=== PATIENT | female | born 1965 | race Caucasian/White ===

== ENCOUNTER → 2016-05-25 | Outpatient (CLI) | payer OTHER ==
[~2016-05-25] MED LIST: ARIP15TA2 PO; ARIP2TAB PO; ARIP5TAB6 PO; ASPI-496 PO; BIOTIN PO; BUSP15TA PO; BUTA1CAP60 PO; CHOL10003 PO; CITA20TA9 PO; CITA40TA5 PO; FISH OIL PO; L THYROXINE PO; LAMO100T5 PO; LAMO200T PO; LAMO25TB2 PO; LEVO100T5 PO; LITH600C PO; MAGNESIUM PO; MULT-516 PO; PANT40TA3 PO; TRAZ150T68 PO; VITAMIN E PO
== END | disposition home or self-care (01) ==
LOC: CARD 15:11
PROVIDERS: ATTEND Specialist
DX: R06.00 Dyspnea, unspecified (principal)
CPT/HCPCS: 94060; 94726; 94729

== ENCOUNTER 2016-06-14 20:56 | Emergency (ER) | payer OTHER ==
[~2016-06-14] VITALS: Ht 170.2 cm; Wt 52.0 kg
[2016-06-14] MEDS ORDERED: ALBUTEROL/IPRATROPIUM 2.5MG/0.5MG, 3 ML NPPB ONE (21:30)
[2016-06-14] MEDS ORDERED: ALBUTEROL/IPRATROPIUM 2.5MG/0.5MG, 3 ML ONE (21:45)
[2016-06-14 21:56] LABS: HEMOGLOBIN 12.5 g/dL (11.7-16.4)
[2016-06-14 22:09] LABS: ASPARTATE AMINO TRANSFERASE 16 U/L (15-37); BLOOD UREA NITROGEN 10 mg/dL (7-18)
[2016-06-14 22:14] LABS: IS PT STATUS REG ER OR PRE ER? YES
[2016-06-14 22:49] VITALS: BP 121/72
== END 2016-06-14 23:15 ==
LOC: ED 23:00
DX: R06.02 Shortness of breath (principal); R07.89 Other chest pain; R05 Cough; Z90.49 Acquired absence of other specified parts of digestive tract; Z90.710 Acquired absence of both cervix and uterus; Z87.891 Personal history of nicotine dependence
CPT/HCPCS: 36415; 71020; 80053; 83880; 84484; 85025; 93005; 99285

== ENCOUNTER → 2016-06-15 | Outpatient (CLI) | payer OTHER | END | disposition home or self-care (01) | LOC: CVU 09:51 | PROVIDERS: ATTEND Emergency Medicine | DX: I08.3 Combined rheumatic disorders of mitral, aortic and tricuspid valves (principal) | CPT/HCPCS: 93306 ==

== ENCOUNTER → 2016-06-27 | Outpatient (CLI) | payer OTHER ==
[~2016-06-27] MED LIST changes: +OMNIPAQUE 350 MG/ML, 100ML BOTTLE ONE
== END | disposition home or self-care (01) ==
LOC: CFH 13:53
PROVIDERS: ATTEND Internal Medicine Gastroenterology
DX: R59.1 Generalized enlarged lymph nodes (principal); Z90.49 Acquired absence of other specified parts of digestive tract
CPT/HCPCS: 74177; Q9967

== ENCOUNTER 2016-10-03 14:12 | Emergency (ER) | payer OTHER ==
[~2016-10-03] VITALS: Ht 170.2 cm; Wt 57.9 kg
[~2016-10-03 14:12] MED LIST changes: -OMNIPAQUE 350 MG/ML, 100ML BOTTLE ONE
[2016-10-03] MEDS ORDERED: ONDANSETRON ODT 4 MG ONE (14:24)
[2016-10-03] MEDS ORDERED: ONDANSETRON ODT 4 MG PO ONE (14:30)
[2016-10-03] MEDS ORDERED: SODIUM CHLORIDE 0.9% 1,000ML IVBOLUS ONE (16:00)
[2016-10-03] MEDS ORDERED: FAMOTIDINE 20 MG/2 ML IVP ONE (16:00)
[2016-10-03] MEDS ORDERED: SODIUM CHLORIDE FLUSH 10ML SYR IVF ONE (16:00)
[2016-10-03] MEDS ORDERED: FAMOTIDINE 20 MG/2 ML ONE (16:21)
[2016-10-03] MEDS ORDERED: ONDANSETRON 2MG/ML, 2ML ONE ×2 (16:21→16:25)
[2016-10-03 16:29] LABS: ASPARTATE AMINO TRANSFERASE 21 U/L (15-37); BLOOD UREA NITROGEN 14 mg/dL (7-18)
[2016-10-03] MEDS ORDERED: ONDANSETRON 2MG/ML, 2ML IVPush ONE (16:30)
[2016-10-03] MEDS ORDERED: LAMO100T PO (16:31)
[2016-10-03] MEDS ORDERED: SULF1TAB24 PO (16:32)
[2016-10-03 17:41] VITALS: BP 114/64
== END 2016-10-03 17:44 | disposition home or self-care (01) ==
LOC: ED 15:26
DX: K29.01 Acute gastritis with bleeding (principal); R04.2 Hemoptysis; J44.9 Chronic obstructive pulmonary disease, unspecified; Z90.710 Acquired absence of both cervix and uterus; Z90.49 Acquired absence of other specified parts of digestive tract; Z79.82 Long term (current) use of aspirin; Z86.73 Personal history of transient ischemic attack (TIA), and cerebral infarction without residual deficits
CPT/HCPCS: 36415; 71010; 80053; 83690; 85025; 85610; 93005; 96361; 96374; 96375; 99285; J2405; J7030; S0028

== ENCOUNTER → 2017-07-03 | Outpatient (CLI) | payer OTHER ==
[~2017-07-03] MED LIST changes: -ARIP15TA2 PO; +ARIP15TA3 PO; -ARIP2TAB PO; +ARIP2TAB2 PO; +ARIP5TAB13 PO; -ARIP5TAB6 PO; +LAMO100T PO; -LAMO200T PO; +LAMO200T2 PO; +SULF1TAB24 PO; +TRAZ150T62 PO; -TRAZ150T68 PO
== END | disposition home or self-care (01) ==
LOC: CFH 09:00
PROVIDERS: ATTEND Physical Medicine & Rehabilitation
DX: M51.27 Other intervertebral disc displacement, lumbosacral region (principal); M51.36 Other intervertebral disc degeneration, lumbar region
CPT/HCPCS: 72148

== ENCOUNTER → 2017-12-10 | Outpatient (CLI) | payer OTHER | END | disposition home or self-care (01) | LOC: RAD 10:33 | PROVIDERS: ATTEND Neurological Surgery | DX: Z01.818 Encounter for other preprocedural examination (principal); M48.061 Spinal stenosis, lumbar region without neurogenic claudication | CPT/HCPCS: 71046; 93005 ==

== ENCOUNTER 2018-11-18 13:11 | Inpatient (IN) | payer OTHER ==
[~2018-11-18] VITALS: Ht 177.8 cm; Wt 54.3 kg
--- NOTE | 2018-11-18 13:18 | NUR ---
1315 code neuro paged [phone] shelby for dr barrett
--- NOTE | 2018-11-18 13:23 | NUR ---
dr shelby returned call to dr barrett
--- NOTE | 2018-11-18 13:28 | NUR ---
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
[2018-11-18] MEDS ORDERED: OMNIPAQUE 350 MG/ML, 100ML BOTTLE ONE (13:38)
--- NOTE | 2018-11-18 13:45 | NUR ---
TASK RN: TRINA [id number]
[2018-11-18 13:50] LABS: BASOPHILS # (AUTO) 0.05 x10^3/uL (0-0.1); BASOPHILS % (AUTO) 1 % (0-1); EOSINOPHILS # (AUTO) 0.12 x10^3/uL (0-0.4); EOSINOPHILS % (AUTO) 3 % (1-7); LYMPHOCYTES # (AUTO) 1.46 x10^3/uL (1-3.4); LYMPHOCYTES % (AUTO) 31 % (22-44); MD NO; MEAN CORPUSCULAR HEMOGLOBIN 29.9 pg (27.0-34.8); MEAN CORPUSCULAR HGB CONC 31.8 g/dL (32.4-35.8); MEAN CORPUSCULAR VOLUME 93.9 fL (80-100); MEAN PLATELET VOLUME 8.6 fL (7.4-10.4); MONOCYTES # (AUTO) 0.49 x10^3/uL (0.2-0.8); MONOCYTES % (AUTO) 10 % (2-9); NEUTROPHILS % (AUTO) 55 % (42-75); PLATELET COUNT 360 x10^3/uL (130-400); RED BLOOD COUNT 4.44 x10^6/uL (3.82-5.3)
[2018-11-18] MEDS ORDERED: ASPIRIN 81 MG TABLET CHEW ONE (14:24)
[2018-11-18 14:29] LABS: INTERNATIONAL NORMALIZED RATIO 1.02 (0.93-1.1); PROTHROMBIN TIME 10.7 Seconds (9.6-11.5)
[2018-11-18] MEDS ORDERED: CLOPIDOGREL 75 MG TABLET PO ONE (14:30)
[2018-11-18] MEDS ORDERED: SODIUM CHLORIDE FLUSH 10ML SYR IVF PRN (14:30)
[2018-11-18] MEDS ORDERED: ASPIRIN 81 MG TABLET CHEW PO ONE (14:30)
[2018-11-18 14:34] LABS: FREE T4 (FREE THYROXINE) 1.11 ng/dL (0.76-1.46)
[2018-11-18] MEDS ORDERED: CLOPIDOGREL 75 MG TABLET ONE (14:42)
--- NOTE | 2018-11-18 14:47 | NUR ---
Dr. ayala (hospitalist at bedside) Swallow eval performed by specification writer-patient then medicated per emar (162mg of asa & 75mg plavix)
[2018-11-18] MEDS ORDERED: HYDROcodone/APAP 5/325 TABLET PO PRN (15:00)
[2018-11-18] MEDS ORDERED: ONDANSETRON 2MG/ML, 2ML IVPush PRN (15:00)
[2018-11-18] MEDS ORDERED: morphine SULFATE 10 MG/ML, 1ML IVPush PRN (15:00)
[2018-11-18] MEDS ORDERED: ACETAMINOPHEN 650 MG/20.3 ML UDC PO PRN (15:00)
[2018-11-18] MEDS ORDERED: ASPIRIN 325 MG TABLET PO ONE (15:00)
--- NOTE | 2018-11-18 15:20 | NUR ---
patient to mri
--- NOTE | 2018-11-18 15:22 | NUR ---
patient up to restroom. cordinated/quick gait urine sample obtained/ sent to lab
--- NOTE | 2018-11-18 15:58 | NUR ---
Dr. Araujo (neurologist) at bedside
[2018-11-18 16:29] VITALS: BP 125/81
[2018-11-18 17:14] LABS: MICROSCOPIC AUTO
[2018-11-18] MEDS ORDERED: VIT1CAPS9 PO (19:26)
[2018-11-18] MEDS ORDERED: TEMA15CA PO (19:26)
[2018-11-18] MEDS ORDERED: ACET-76 PO (19:26)
[2018-11-18] MEDS ORDERED: DULO60CA56 PO (19:29)
[2018-11-18] MEDS ORDERED: POLY17PO5 PO (19:41)
[2018-11-18 20:53] VITALS: BP 114/75
[2018-11-18] MEDS ORDERED: LITHIUM CARBONATE 150 MG CAPSULE PO SCH (21:00)
[2018-11-18] MEDS ORDERED: ATORVASTATIN 80 MG TABLET PO SCH (21:00)
[2018-11-18] MEDS: POTASSIUM CHLORIDE 20 MEQ in SODIUM CHLORIDE 0.9% 1,000 ML IV SCH (21:15)
[2018-11-18] MEDS: LAMOTRIGINE 100 MG TABLET PO SCH (21:15)
[2018-11-19] MEDS ORDERED: TRAZODONE 150MG TABLET ONE (00:44)
[2018-11-19 00:49] VITALS: BP 134/84
[2018-11-19] MEDS ORDERED: TRAZODONE 150MG TABLET PO PRN ×2 (01:00→01:30)
[2018-11-19 04:00] VITALS: BP 121/73
[2018-11-19 05:10] LABS: CHOL/HDL RATIO 3.2; LDL/HDL RATIO 1.7 (0.5-3.0)
[2018-11-19] MEDS ORDERED: ASPIRIN 81 MG TABLET EC PO SCH (06:00)
[2018-11-19 07:50] VITALS: BP 117/66
[2018-11-19] MEDS ORDERED: ARIPIPRAZOLE 2 MG TABLET PO SCH (09:00)
[2018-11-19] MEDS ORDERED: CLOPIDOGREL 75 MG TABLET PO SCH (09:00)
[2018-11-19] MEDS ORDERED: ASPIRIN 81 MG TABLET CHEW PO/NG SCH (09:00)
[2018-11-19] MEDS ORDERED: LITHIUM CARBONATE 300 MG CAPSULE PO SCH (09:00)
[2018-11-19] MEDS ORDERED: CITALOPRAM 20 MG TABLET PO SCH (09:00)
[2018-11-19] MEDS ORDERED: DULOXETINE 30 MG CAPSULE.DR PO SCH (09:00)
[2018-11-19] MEDS ORDERED: LEVOTHYROXINE 100 MCG TABLET PO SCH (09:00)
[2018-11-19] MEDS ORDERED: MULTIVITAMINS/MINERALS TABLET PO SCH (09:00)
[2018-11-19] MEDS: LAMOTRIGINE 100 MG TABLET PO SCH (09:47)
[2018-11-19] MEDS: POTASSIUM CHLORIDE 20 MEQ in SODIUM CHLORIDE 0.9% 1,000 ML IV SCH (09:49)
[2018-11-19 12:56] VITALS: BP 121/63
[2018-11-19] MEDS ORDERED: ASPI-515 PO/NG (13:04)
[2018-11-19] MEDS ORDERED: CLOP75TA PO (13:04)
[2018-11-19] MEDS ORDERED: ATOR-2 PO (13:04)
== END 2018-11-19 15:33 | disposition home or self-care (01) | DRG 65 ==
LOC: ED 14:15 → EDIP 14:28 → 4WST 16:19 → DCLOUNGE 11-19 15:09
PROVIDERS: ADMIT Internal Medicine; ATTEND Internal Medicine
DX: I63.9 Cerebral infarction, unspecified (principal); F31.81 Bipolar II disorder; G46.1 Anterior cerebral artery syndrome; Q21.1 Atrial septal defect; E03.9 Hypothyroidism, unspecified; R47.01 Aphasia; F12.90 Cannabis use, unspecified, uncomplicated; G24.01 Drug induced subacute dyskinesia; G40.909 Epilepsy, unspecified, not intractable, without status epilepticus; I34.1 Nonrheumatic mitral (valve) prolapse; J44.9 Chronic obstructive pulmonary disease, unspecified; M34.9 Systemic sclerosis, unspecified; M41.9 Scoliosis, unspecified; Z79.02 Long term (current) use of antithrombotics/antiplatelets; Z79.82 Long term (current) use of aspirin; Z86.73 Personal history of transient ischemic attack (TIA), and cerebral infarction without residual deficits; Z90.710 Acquired absence of both cervix and uterus; Z87.891 Personal history of nicotine dependence; Z90.89 Acquired absence of other organs; Z90.49 Acquired absence of other specified parts of digestive tract; Z82.49 Family history of ischemic heart disease and other diseases of the circulatory system
CPT/HCPCS: 36415; 70450; 70496; 70498; 70551; 80047; 80061; 80175; 80178; 81001; 82962; 84439; 84443; 84481; 85025; 85610; 85730; 93005; 93306; 99291; G0378; J3480; Q9967; 92523-GN; J7030

== ENCOUNTER → 2019-03-20 | Outpatient (CLI) | payer OTHER ==
[~2019-03-20] MED LIST changes: +ACET-76 PO; +ASPI-515 PO/NG; +ATOR-2 PO; +CLOP75TA PO; +DULO60CA56 PO; +POLY17PO5 PO; +TEMA15CA PO; +VIT1CAPS9 PO
== END | disposition home or self-care (01) ==
LOC: CFH 08:44
PROVIDERS: ATTEND Internal Medicine Critical Care Medicine
DX: R91.1 Solitary pulmonary nodule (principal)
CPT/HCPCS: 71250

== ENCOUNTER 2020-05-07 20:14 | Emergency (ER) | payer OTHER ==
[~2020-05-07] VITALS: Ht 172.7 cm; Wt 58.2 kg
[~2020-05-07 20:14] MED LIST changes: +ARMO250T2 PO; -ASPI-515 PO/NG; +ASPI-963 PO/NG; +BACL20TA PO; +CITA40TA12 PO; +DEXL60CA2 PO; -LAMO100T PO; +LAMO100T8 PO; -LAMO200T2 PO; +LAMO200T6 PO; +LEVO25TA4 PO; +ONDA4TAB13 SL; +OXYC5CAP2 PO; +PRUC1TAB PO; +ZALE10CA PO
[2020-05-07] MEDS ORDERED: SODIUM CHLORIDE FLUSH 10ML SYR IVF ONE (21:00)
[2020-05-07] MEDS ORDERED: MORPHINE SULFATE 4 MG/ML, 1ML ONE (21:08)
[2020-05-07 21:16] LABS: BASOPHILS % (AUTO) 0 % (0-1); EOSINOPHILS % (AUTO) 1 % (1-7); LYMPHOCYTES % (AUTO) 5 % (22-44); MEAN CORPUSCULAR HEMOGLOBIN 30.3 pg (27.0-34.8); MEAN CORPUSCULAR HGB CONC 32.9 g/dL (32.4-35.8); MEAN PLATELET VOLUME 7.4 fL (7.4-10.4); MONOCYTES % (AUTO) 5 % (2-9); NEUTROPHILS % (AUTO) 89 % (42-75); PLATELET COUNT 208 x10^3/uL (130-400); RED BLOOD COUNT 4.16 x10^6/uL (3.82-5.3); RED CELL DISTRIBUTION WIDTH 14.3 % (9.6-15.2)
[2020-05-07 21:28] LABS: ALANINE AMINOTRANSFERASE 203 U/L (12-78); ALBUMIN 3.5 g/dL (3.4-5.0); ANION GAP 7 mmol/L (5-15); CHLORIDE 105 mmol/L (98-107); CREATININE 0.67 mg/dL (0.55-1.02)
[2020-05-07 21:30] LABS: ALKALINE PHOSPHATASE 108 U/L (45-117); BILIRUBIN,TOTAL 0.4 mg/dL (0.2-1.0); TOTAL PROTEIN 6.6 g/dL (6.4-8.2)
[2020-05-07] MEDS ORDERED: MORPHINE SULFATE 4 MG/ML, 1ML IVPush PRN (21:30)
[2020-05-07] MEDS ORDERED: ONDANSETRON 2MG/ML, 2ML IVPush ONE (21:30)
[2020-05-07 21:40] LABS: MD SCAN
--- NOTE | 2020-05-07 22:00 | NUR ---
REPORT RECIEVED FROM AMADA JOSEPH
[2020-05-07] MEDS ORDERED: ONDANSETRON 2MG/ML, 2ML ONE (22:28)
[2020-05-07 22:40] LABS: MICROSCOPIC NOT IND
[2020-05-07] MEDS ORDERED: KETOROLAC 30 MG/1 ML IVPush ONE (23:00)
[2020-05-07] MEDS ORDERED: OMNIPAQUE 350 MG/ML, 100ML BOTTLE ONE (23:28)
[2020-05-07 23:30] LABS: TROPONIN I < 0.015 ng/mL (0.000-0.045)
[2020-05-08 00:13] VITALS: BP 114/66
[2020-05-08] MEDS ORDERED: CITA10TA8 PO (07:21)
[2020-05-08] MEDS ORDERED: VIT1TABL32 PO (07:22)
[2020-05-08] MEDS ORDERED: ARIP10TA33 PO (17:13)
[2020-05-09] MEDS ORDERED: SUCR1ORA5 PO (14:12)
[2020-05-09] MEDS ORDERED: LEVO112T4 PO (14:12)
== END 2020-05-08 00:15 | disposition home or self-care (01) ==
LOC: ED 21:35
DX: K29.00 Acute gastritis without bleeding (principal); R10.13 Epigastric pain; R11.0 Nausea; E03.9 Hypothyroidism, unspecified; E78.5 Hyperlipidemia, unspecified; E78.00 Pure hypercholesterolemia, unspecified; Z86.73 Personal history of transient ischemic attack (TIA), and cerebral infarction without residual deficits; Z90.89 Acquired absence of other organs; Z90.49 Acquired absence of other specified parts of digestive tract; Z86.718 Personal history of other venous thrombosis and embolism; Z90.721 Acquired absence of ovaries, unilateral
CPT/HCPCS: 36415; 74177; 80053; 81003; 83690; 84484; 85025; 93005; 96374; 96375; 99285; J2270; J2405; Q9967

== ENCOUNTER 2020-05-08 04:42 | Inpatient (IN) | payer OTHER ==
[~2020-05-08] VITALS: Ht 172.7 cm; Wt 39.6 kg
--- NOTE | 2020-05-08 05:19 | NUR ---
PT PLACED ON 2.5L NC TOLERATED WELL, RESTING ON GURNEY NO NEEDS AT THIS TIME
[2020-05-08] MEDS ORDERED: PROCHLORPERAZINE 5 MG/ML, 2ML ONE (05:24)
[2020-05-08] MEDS ORDERED: SODIUM CHLORIDE 0.9% 1,000ML IVBOLUS ONE (05:30)
[2020-05-08] MEDS ORDERED: SODIUM CHLORIDE FLUSH 10ML SYR IVF ONE (05:30)
[2020-05-08] MEDS ORDERED: PROCHLORPERAZINE 5 MG/ML, 2ML IVPush ONE (05:30)
[2020-05-08 05:54] LABS: ALANINE AMINOTRANSFERASE 209 U/L (12-78); ALBUMIN 3.7 g/dL (3.4-5.0); ANION GAP 5 mmol/L (5-15); CALCIUM 9.6 mg/dL (8.5-10.1); CHLORIDE 109 mmol/L (98-107); CREATININE 0.65 mg/dL (0.55-1.02)
[2020-05-08 05:56] LABS: ALKALINE PHOSPHATASE 113 U/L (45-117); BILIRUBIN,TOTAL 0.3 mg/dL (0.2-1.0)
[2020-05-08] MEDS ORDERED: MORPHINE SULFATE 4 MG/ML, 1ML IVPush PRN (06:00)
--- NOTE | 2020-05-08 06:24 | NUR ---
Pt to ER with c/o nausea and vomiting. Pt was seen yesterday for same and was dc'd home. Pt states she has contiued to have n/v since DC yesterday. Pt on monitor, warm blanket given. at bedside. IV placed, pt medicated per order. Nausea improved. Pt still has abd pain. Pt drowsy, unable to stay awake to answer questions. Pt will arouse easily, then falls back asleep. Pt with stable VS. Non-labored breathing. at bedside. will monitor.
--- NOTE | 2020-05-08 06:55 | NUR ---
Attempt x 2 to give report.
--- NOTE | 2020-05-08 07:11 | NUR ---
CALLED FOR REPORT, MORRIS TOOK REPORT STATES SHE WAS JUST ALERTED THIS HER PATIENT INITIALLY JOLANTA WAS ASSIGNED RN. GAVE REPORT SBAR. PATIENT UP TO BATHROOM, ASSISTED HER TO NEARBY BATHROOM, NO COMPLICATIONS.
[2020-05-08] MEDS ORDERED: CITA10TA8 PO (07:21)
[2020-05-08] MEDS ORDERED: VIT1TABL32 PO (07:22)
[2020-05-08] MEDS ORDERED: ZALEPLON 10 MG PO PRN (07:30)
[2020-05-08] MEDS ORDERED: morphine SULFATE 10 MG/ML, 1ML IVPush PRN (07:30)
[2020-05-08] MEDS ORDERED: ACETAMINOPHEN 325 MG TABLET PO PRN (07:30)
[2020-05-08] MEDS ORDERED: TRAZODONE 150MG TABLET PO PRN (07:30)
[2020-05-08] MEDS ORDERED: LITHIUM CARBONATE 300 MG CAPSULE PO SCH (07:30)
[2020-05-08] MEDS ORDERED: ONDANSETRON ODT 4 MG PO PRN (07:30)
[2020-05-08 07:49] VITALS: BP 116/71
[2020-05-08] MEDS: CITALOPRAM 10 MG TABLET PO SCH (08:28)
[2020-05-08] MEDS: HEPARIN 5,000 UNITS/ML, 1ML SQ SCH ×2 (08:28→15:55)
[2020-05-08] MEDS: HYDROcodone/APAP 5/325 TABLET PO PRN ×4 (08:28→21:57)
[2020-05-08] MEDS: LEVOTHYROXINE 100 MCG TABLET PO SCH (08:29)
[2020-05-08] MEDS: LACTATED RINGERS 1,000 ML IV SCH ×2 (08:30→15:56)
[2020-05-08] MEDS: ONDANSETRON 2MG/ML, 2ML IVPush PRN ×2 (08:52→17:18)
[2020-05-08] MEDS: PANTOPRAZOLE 40 MG IV IVPush SCH (08:52)
[2020-05-08 08:57] VITALS: BP 122/64
[2020-05-08] MEDS: SUCRALFATE 1 GM/10 ML UDC PO SCH ×3 (10:11→20:20)
[2020-05-08] MEDS: PROMETHAZINE 25 MG/ML, 1ML IM PRN ×2 (10:47→18:14)
[2020-05-08] MEDS: PROCHLORPERAZINE 5 MG/ML, 2ML IV PRN ×2 (13:14→21:57)
[2020-05-08 13:43] VITALS: BP 116/73
[2020-05-08] MEDS ORDERED: ARIP10TA33 PO (17:13)
[2020-05-08] MEDS ORDERED: ARIPIPRAZOLE 15 MG TABLET ONE (17:24)
[2020-05-08 19:17] VITALS: BP 127/77
[2020-05-08] MEDS ORDERED: ARIPIPRAZOLE 10 MG TABLET PO SCH (21:00)
[2020-05-08] MEDS ORDERED: LITHIUM CARBONATE 150 MG CAPSULE PO SCH (21:00)
[2020-05-09] MEDS: HEPARIN 5,000 UNITS/ML, 1ML SQ SCH ×2 (00:48→09:36)
[2020-05-09] MEDS: ONDANSETRON 2MG/ML, 2ML IVPush PRN (00:48)
[2020-05-09 01:27] VITALS: BP 100/54
[2020-05-09] MEDS: LACTATED RINGERS 1,000 ML IV SCH (03:26)
[2020-05-09] MEDS: HYDROcodone/APAP 5/325 TABLET PO PRN (03:32)
[2020-05-09 05:54] LABS: BASOPHILS % (AUTO) 1 % (0-1); EOSINOPHILS % (AUTO) 3 % (1-7); LYMPHOCYTES % (AUTO) 26 % (22-44); MEAN CORPUSCULAR HEMOGLOBIN 31.3 pg (27.0-34.8); MEAN CORPUSCULAR HGB CONC 33.6 g/dL (32.4-35.8); MEAN PLATELET VOLUME 7.7 fL (7.4-10.4); MONOCYTES % (AUTO) 11 % (2-9); NEUTROPHILS % (AUTO) 59 % (42-75); PLATELET COUNT 194 x10^3/uL (130-400); RED BLOOD COUNT 3.84 x10^6/uL (3.82-5.3); RED CELL DISTRIBUTION WIDTH 13.8 % (9.6-15.2)
[2020-05-09] MEDS: SUCRALFATE 1 GM/10 ML UDC PO SCH ×2 (06:04→11:18)
[2020-05-09 06:05] LABS: ALANINE AMINOTRANSFERASE 112 U/L (12-78); ALBUMIN 2.6 g/dL (3.4-5.0); ANION GAP 6 mmol/L (5-15); CALCIUM 8.8 mg/dL (8.5-10.1); CHLORIDE 109 mmol/L (98-107); CREATININE 0.46 mg/dL (0.55-1.02)
[2020-05-09] MEDS: PROCHLORPERAZINE 5 MG/ML, 2ML IV PRN (06:05)
[2020-05-09 06:10] LABS: MD NO
[2020-05-09 06:15] LABS: ALKALINE PHOSPHATASE 81 U/L (45-117); BILIRUBIN,TOTAL 0.3 mg/dL (0.2-1.0); TOTAL PROTEIN 5.4 g/dL (6.4-8.2)
[2020-05-09 06:39] LABS: FREE T4 (FREE THYROXINE) 0.74 ng/dL (0.76-1.46)
[2020-05-09 08:40] VITALS: BP 101/61
[2020-05-09] MEDS ORDERED: PRUCALOPRIDE SUCCINATE HOMEMEDPO SCH (09:30)
[2020-05-09] MEDS ORDERED: LITHIUM CARBONATE 300 MG CAPSULE PO SCH (09:30)
[2020-05-09] MEDS: PANTOPRAZOLE 40 MG IV IVPush SCH (09:36)
[2020-05-09] MEDS: LEVOTHYROXINE 100 MCG TABLET PO SCH (09:37)
[2020-05-09] MEDS: CITALOPRAM 10 MG TABLET PO SCH (09:37)
[2020-05-09] MEDS ORDERED: LEVO112T4 PO (14:12)
[2020-05-09] MEDS ORDERED: SUCR1ORA5 PO (14:12)
[2020-05-09 15:14] VITALS: BP 108/69
== END 2020-05-09 16:12 | disposition home or self-care (01) | DRG 392 ==
LOC: ED 05:47 → EDIP 06:22 → 4NE 07:40 → DCLOUNGE 05-09 15:58
PROVIDERS: ADMIT Internal Medicine; ATTEND Family Medicine
DX: K52.9 Noninfective gastroenteritis and colitis, unspecified (principal); E03.9 Hypothyroidism, unspecified; E78.5 Hyperlipidemia, unspecified; E86.0 Dehydration; F31.9 Bipolar disorder, unspecified; G47.33 Obstructive sleep apnea (adult) (pediatric); R74.01 Elevation of levels of liver transaminase levels; R94.6 Abnormal results of thyroid function studies; G47.30 Sleep apnea, unspecified; M34.9 Systemic sclerosis, unspecified; Z86.73 Personal history of transient ischemic attack (TIA), and cerebral infarction without residual deficits; Z98.82 Breast implant status
CPT/HCPCS: 36415; 71045; 80053; 80074; 83605; 83690; 84439; 84443; 85025; 96374; 99285; G0378; J1644; J2405; J2550; C9113; J0780; J7030; J7120

== ENCOUNTER 2020-08-10 21:54 | Emergency (ER) | payer OTHER ==
[~2020-08-10] VITALS: Ht 172.7 cm; Wt 55.9 kg
[~2020-08-10 21:54] MED LIST changes: +ARIP10TA33 PO; +CITA10TA8 PO; +LEVO112T4 PO; +SUCR1ORA5 PO; +SULF-23 PO; -SULF1TAB24 PO; +VIT1TABL32 PO
[2020-08-10 22:14] VITALS: BP 148/99
--- NOTE | 2020-08-11 00:28 | NUR ---
NIL X 1
--- NOTE | 2020-08-11 00:55 | NUR ---
NIL X 2
--- NOTE | 2020-08-11 01:10 | NUR ---
NIL X 3
[2020-08-11] MEDS ORDERED: PROCHLORPERAZINE 10MG TABLET ONE (03:14)
[2020-08-11] MEDS ORDERED: KETOROLAC 30 MG/1 ML ONE (03:14)
[2020-08-11] MEDS ORDERED: DIPHENHYDRAMINE 25 MG CAPSULE ONE (03:14)
== END 2020-08-11 01:12 | disposition left against medical advice (07) ==
LOC: ED 22:24
DX: G43.909 Migraine, unspecified, not intractable, without status migrainosus (principal)
CPT/HCPCS: 99281

== ENCOUNTER 2020-08-11 02:56 | Emergency (ER) | payer OTHER ==
[~2020-08-11] VITALS: Ht 172.7 cm; Wt 55.0 kg
[2020-08-11] MEDS ORDERED: PROCHLORPERAZINE 5 MG/ML, 2ML ONE (03:14)
[2020-08-11 03:28] LABS: BASOPHILS % (AUTO) 1 % (0-1); EOSINOPHILS % (AUTO) 0 % (1-7); LYMPHOCYTES % (AUTO) 10 % (22-44); MEAN CORPUSCULAR HEMOGLOBIN 31.5 pg (27.0-34.8); MEAN CORPUSCULAR HGB CONC 33.5 g/dL (32.4-35.8); MEAN PLATELET VOLUME 7.4 fL (7.4-10.4); MONOCYTES % (AUTO) 8 % (2-9); NEUTROPHILS % (AUTO) 81 % (42-75); PLATELET COUNT 286 x10^3/uL (130-400); RED BLOOD COUNT 4.53 x10^6/uL (3.82-5.3); RED CELL DISTRIBUTION WIDTH 13.2 % (9.6-15.2)
[2020-08-11 03:29] LABS: MD NO
[2020-08-11] MEDS ORDERED: KETOROLAC 30 MG/1 ML IM ONE (03:30)
[2020-08-11] MEDS ORDERED: DIPHENHYDRAMINE 25 MG CAPSULE PO ONE (03:30)
[2020-08-11] MEDS ORDERED: PROCHLORPERAZINE 5 MG/ML, 2ML IM ONE (03:30)
[2020-08-11 03:40] LABS: ANION GAP 4 mmol/L (5-15); CALCIUM 9.5 mg/dL (8.5-10.1); CHLORIDE 108 mmol/L (98-107); CREATININE 0.62 mg/dL (0.55-1.02)
[2020-08-11] MEDS ORDERED: ACETAMINOPHEN 500 MG TABLET PO ONE (04:00)
[2020-08-11] MEDS ORDERED: ACETAMINOPHEN 500 MG TABLET ONE (04:02)
[2020-08-11 04:38] VITALS: BP 126/82
== END 2020-08-11 04:40 | disposition home or self-care (01) ==
LOC: ED 03:22
DX: G43.909 Migraine, unspecified, not intractable, without status migrainosus (principal); R11.2 Nausea with vomiting, unspecified; E78.5 Hyperlipidemia, unspecified; E78.00 Pure hypercholesterolemia, unspecified; E03.9 Hypothyroidism, unspecified; Z86.73 Personal history of transient ischemic attack (TIA), and cerebral infarction without residual deficits; Z90.49 Acquired absence of other specified parts of digestive tract
CPT/HCPCS: 36415; 80048; 82040; 85025; 96372; 99284; J0780; J1885; Q0163